=== PATIENT | female | born 1995 | race African-American/Black ===

== ENCOUNTER 2020-12-27 21:21 | Emergency (ER) | payer OTHER ==
[2020-12-27] MEDS ORDERED: Lidocaine 1% (PF) 30 ML VIAL ONE (23:56)
== END 2020-12-28 00:55 | disposition home or self-care (01) ==
LOC: CSHERS 21:21
DX: S41.112A Laceration without foreign body of left upper arm, initial encounter (principal); W26.9XXA Contact with unspecified sharp object(s), initial encounter
CPT/HCPCS: 99282; J2001

== ENCOUNTER 2020-12-28 11:21 | Emergency (ER) | payer OTHER ==
[2020-12-28] MEDS ORDERED: Bacitracin 1 PK ONE (13:23)
== END 2020-12-28 13:27 | disposition home or self-care (01) ==
LOC: CSHERS 11:21
DX: S51.812A Laceration without foreign body of left forearm, initial encounter (principal); F17.210 Nicotine dependence, cigarettes, uncomplicated; W26.8XXA Contact with other sharp object(s), not elsewhere classified, initial encounter
CPT/HCPCS: 12002